=== PATIENT | female | born 1985 | race Caucasian/White ===

== ENCOUNTER → 2021-08-14 09:05 | Outpatient (CLI) | payer OTHER, SELFPAY ==
--- NOTE | ~2021-08-14 | CT_ITS ---
EXAMINATION: CTA chest PE protocol DATE: 08/14/2021 09:43 INDICATION: Hemoptysis. Dyspnea. TECHNIQUE: Computed tomography angiography (CTA) of the chest was performed with 100 mL Omnipaque-350 intravenous contrast timed to evaluate the pulmonary arteries. Coronal maximum intensity projection 3D-reconstructions were created by the technologist. Automated exposure control and iterative reconst ruction technique were employed. The dose-length product was 385.38 mGy-cm. COMPARISON: None. FINDINGS: Calcified right lung nodules and calcified right hilar lymph nodes are consistent with old granulomatous disease. There is minimal dependent atelectasis bilaterally. No pleural effusion. The h eart size is normal. No pericardial effusion. There is no pulmonary embolus. There is mild thoracic s pondylosis. IMPRESSION: 1. No pulmonary embolus. Reviewed, dictated and finalized at location B. SURER IMPRESSION: 1. No pulmonary embolus.
== END ==
PROVIDERS: Visit Provider Physician Assistant Medical
DX: R06.00 Dyspnea, unspecified (principal); M47.814 Spondylosis without myelopathy or radiculopathy, thoracic region
CPT/HCPCS: 71275; Q9967

== ENCOUNTER 2022-04-09 00:41 | Day surgery (SDC) | payer OTHER, SELFPAY ==
[2022-04-08 08:57] VITALS: BMI 31.6
--- NOTE | 2022-04-08 08:58 | PC.NURSE ---
Report to the Outpatient Waiting Room, entrance under the green pavilion located off [facility], at time _1000_ on date _[id number]_. OR Time: _1200_. - You and your visitor will be asked to self-screen and do not enter if you have any COVID symptoms. - Only one visitor and NO children visitors are allowed at this time. - The patient visitor is requested to leave or wait in car when not with patient due to restrictions. - A mask is required within the hospital. Patients may have clear liquids (water, carbonated beverages, clear teas, apple juice) until 3 hours prior to surgery with a maximum of 20 ounces. - No food from midnight until time of surgery Take the following medications with a SIP of water the morning of surgery: ____None Medications to discontinue per physician None Date to take last dose Please no make-up, nail ukrainian, hairspray, perfume, deodorant, or body powder the day of surgery. No jewelry (including any body piercings) or valuables the day of surgery, leave them at home. Please take a shower or bath the night before, or the morning of, surgery with an antibacterial soap. Wear comfortable, loose fitting clothing. - Jewelry must be removed prior to entering the operating room. Rings and piercings that are not removed may be cut off. - The hospital will not accept responsibility for valuables. - Please leave all valuables, including medications, at home the day of surgery. If you are going home after surgery, a licensed sweeper driver must drive you home. - NO public transportation without another adult. - We recommend that an adult stay with you for 24 hours following discharge. - We also recommend that you do not drive, make important decision, drink alcoholic beverages, or take any drugs that were not prescribed by your health care provider for at least 24 hours after your discharge time. Follow any additional instructions given to you from your surgeon. If you or anyone in your household have experienced Covid symptoms in the past week, please notify your surgeon or the nurse liaison at the phone number below for possible testing. Telephone instructions given to _Patient__and asked if any additional questions and then verbalized understanding. Patient advised to call surgeon office or pre surgery nurse liaison [phone] if any additional questions.
[2022-04-09] VITALS (9 sets, daily range): BP systolic 85–126; BP diastolic 44–83; PULSE 51–97; RESP 10–16; TEMP 36.3–37.6; O2SAT 100
[2022-04-09] MEDS: ACETAMINOPHEN 500 MG TABLET 1000 MG PO (10:34)
[2022-04-09] MEDS: KETOROLAC 15 MG/ML VIAL (*BKC) IV PUSH (10:36)
[2022-04-09] MEDS: LACTATED RINGERS 1,000 ML 30 ML IV CONT (10:59)
--- NOTE | 2022-04-09 11:08 | P.PNAN_ITS ---
Anes - Initial Pre Proc Eval Procedure: Operation Date: 04/09/22 12:00 Proposed Procedures p Rectal Examination Under Anesthesia, Hemorrhoidectomy - Arianne Pearson MD Date/Time: 04/09/22 11:08 Surgeon: Arianne Pearson MD Pre Op Diagnosis: Thrombosed External Hemorrhoid Patient Data Age: 37 Gender: F Height: 1.6 m Weight: 80.9 kg Allergies Allergy/AdvReac Type Severity Reaction Status Date / Time erenumab-aooe Allergy Mild Rash Verified 04/08/22 09:07 [From Aimovig Autoinjector] hydrocodone Allergy Mild Rash Verified 04/08/22 09:07 sumatriptan [From Imitrex] AdvReac Mild Confusion Verified 04/08/22 08:49 Home Medications Medication Instructions Recorded Confirmed Type acetaminophen 500 mg tablet 500 mg PO Q6H PRN Pain 04/01/22 04/08/22 History (Tylenol Extra Strength) docusate sodium 100 mg capsule 100 mg PO DAILY 04/01/22 04/08/22 History (Dulcolax Stool Softener (docusate)) ibuprofen 200 mg tablet 200 mg PO Q6H PRN Pain 04/01/22 04/08/22 History ubrogepant 50 mg tablet (Ubrelvy) 50 mg PO ONCE PRN headache 04/02/22 04/08/22 History hydrocortisone 2.5 % topical cream 1 applic RECTAL QHS PRN 04/07/22 04/08/22 Rx with perineal applicator hemorrhoids #30 grams (Anusol-HC) Patient hx anesthesia problems: none Family hx anesthesia problems: none Results Review: All pre-operative results and documents have been reviewed as part of the pre- operative evaluation. 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 Informed Consent: The patient's anesthetic plan and its attendant risks and benefits were discussed with the patient/family/POA. Questions were solicited and answers provided to the satisfaction of the patient/family/POA.
--- NOTE | 2022-04-09 11:45 | WPDHPUPDATE1 ---
History and Physical Update Update Date/Time: 04/09/22 11:45 History and Physical has been reviewed, including an updated exam of the patient. There are NO changes in the patient's condition. Risks, benefits, and alternatives have been discussed and questions answered. Patient agrees to proceed with procedure.
[2022-04-09] MEDS: ceFAZolin 2 GM/D5W 50 ML 2 GM/50 ML BAG IVPB (12:04)
[2022-04-09] MEDS: LIDOCAINE HCL 2% GEL UROJET 10 ML PKG MUCOUS MEM (12:16)
[2022-04-09] MEDS: LIDOCAINE HCL 1% PF 30 ML VIAL 10 ML INFILTRATE (12:17)
--- NOTE | 2022-04-09 12:42 | P.OP_ITS ---
Procedure Note - Detailed Date of Procedure 04/09/22 Pre-op Diagnosis Thrombosed External Hemorrhoids Post-op Diagnosis Same Procedure Performed exam under anesthesia, external hemorrhoidectomy involving left lateral and right posterior positions Surgeon Arianne Pearson MD Anesthesia General Indications 37 y/o F c multiple external hemorrhoids c frequent flares causing pain, drainage refractory to conservative measures. Findings multiple external hemorrhoids predominately in L lateral and R posterior Description of Procedure The patient was taken to the operating room and placed in the modified lithotomy position. After adequate induction of general anesthesia, the patient was prepped and draped in the normal sterile fashion. A time-out was then done to verify the patient's identity, as well as the procedure being performed. I began by doing a digital exam. There was noted to be multiple external hemorrhoids, however no internal hemorrhoids were noted. At this point, a bilateral pudendal block was done. Then used the [place] retractor to further evaluate the anal canal as well as rectum, other than external hemorrhoids no other pathology was noted. I then began excising the external hemorrhoids using the hand-held LigaSure device. The hemorrhoids were noted to be in the left lateral and right posterior positions. Multiple hemorrhoids were excised using the LigaSure. The specimens will be sent to pathology for further review. Hemostasis was noted at all excision sites. I then placed a piece of Gelfoam covered with lidocaine jelly into the rectal vault. The patient tolerated the procedure and was extubated in the operating room postop. She will be transferred to the recovery room in stable condition. Implants Gelfoam covered with lidocaine jelly in the rectal vault Estimated Blood Loss 10 Drains No Packing Yes Pathology Yes Complications No immediate complications Condition Stable Disposition PACU [facility] Billing Surgery - Charge Forward: Surgery Billing
== END 2022-04-09 14:25 | disposition home or self-care (01) ==
PROVIDERS: PCP Family Medicine; Visit Provider Surgery
PROC: (CPT 46320; principal; 2022-04-09 12:00)
DX: K64.5 Perianal venous thrombosis (principal)
CPT/HCPCS: 46320 ×2; 88304; A9270; J0690; J1100; J1885; J2250; J2405; J2704; J3010; J7120

== ENCOUNTER → 2022-07-07 07:19 | Outpatient (CLI) | payer OTHER, SELFPAY ==
--- NOTE | ~2022-07-07 | MR_ITS ---
EXAMINATION: MR brain/brain stem wo con DATE: 07/07/2022 07:53 INDICATION: Migraines. Dysphagia. TECHNIQUE: Magnetic resonance imaging (MRI) of the brain and brainstem was performed without intraven ous contrast. Sequences included sagittal and axial T1-weighted SE, axial diffusion-weighted FS SE, a xial T2*-weighted GRE, axial 3D SWAN, axial T2-weighted FLAIR, and axial T2-weighted FSE. Apparent di ffusion coefficient (ADC) maps were created. COMPARISON: None. FINDINGS: There are no areas of restricted diffusion to suggest acute infarction. No intracranial hemorrhage or abnormal intracranial mass lesion. There are no intraparenchymal signal abnormalities seen on the ot her pulse sequences. The ventricles are symmetric and normal in size. There are no abnormal extra-axi al fluid collections. Flow voids are seen in the cerebral arteries on the T2-weighted sequences consi stent with their expected patency. Small right mastoid effusion. Visualized orbits and soft tissues a re unremarkable. IMPRESSION: 1. Normal brain. No acute intracranial process. Reviewed, dictated and finalized at location A. CAL RECORD CODER
== END ==
PROVIDERS: PCP Family Medicine; Visit Provider Family Medicine
DX: R47.02 Dysphasia (principal); G43.909 Migraine, unspecified, not intractable, without status migrainosus
CPT/HCPCS: 70551

== ENCOUNTER 2023-12-27 18:02 | Inpatient (IN) | payer OTHER, SELFPAY ==
[2023-12-27] VITALS (20 sets, daily range): BP systolic 105–146; BP diastolic 55–85; PULSE 68–87; TEMP 36.6; BMI 39.2
[2023-12-27 19:04] LABS: Basophils Percent Auto 0.2 % (0.2-1.2); Eosinophils Absolute Auto 0.1 K/mm3 (0-0.3); Eosinophils Percent Auto 0.8 % (0-4.4); Hematocrit 34.6 % (37.0-47.0); Hemoglobin 11.3 g/dL (12.0-15.0); Immature Granulocyte Absolute 0.07 K/mm3 (0.00-0.031); Immature Granulocyte Percent A 0.5 % (0-0.5); Lymphocytes Percent Auto 14.5 % (18.3-44.2); Mean Corpuscular HGB Conc 32.7 g/dl (32-36); Mean Corpuscular Hemoglobin 27.4 pg (26-34); Mean Corpuscular Volume 83.8 fl (80-100); Mean Platelet Volume 11.8 fl (7.4-10.4); Monocytes Absolute Auto 0.8 K/mm3 (0.1-0.6); Monocytes Percent Auto 5.9 % (2.6-8.5); Neutrophils Absolute Auto 10.3 K/mm3 (1.3-6.7); Neutrophils Percent Auto 78.1 % (45.5-73.1); Platelet Count Result 197 k/mm3 (150-375); Red Blood Count 4.13 M/mm3 (4.2-5.4); Red Cell Distribution Width 13.3 % (11.5-14.5); White Blood Count 13.1 K/mm3 (4.5-10.0)
[2023-12-27 19:16] LABS: Alanine Aminotransferase 20 U/L (6-35); Albumin Level 3.6 g/dL (3.5-5.1); Alkaline Phosphatase 161 U/L (38-126); Anion Gap 5 mmol/L (4-12); Aspartate Amino Transferase 29 U/L (14-36); Bilirubin,Total 0.5 mg/dL (0.2-1.3); Blood Urea Nitrogen 14 mg/dL (7-17); Calcium 9.6 mg/dL (8.4-10.2); Carbon Dioxide 20 mmol/L (22-30); Chloride 109 mmol/L (98-107); Estimated Glomerular Filt Rate > 60; Glucose 108 mg/dL (65-110); Sodium 134 mmol/L (137-145); Uric Acid 5.6 mg/dL (2.5-7.5)
--- NOTE | 2023-12-27 19:25 | LDADM ---
This patient, Diane Aguirre, was admitted to Labor/Delivery/Recovery 102 on 12/27/23 at 18:02. Plans for labor, pain management and were discussed with patient. Patient/family oriented to hospital policies and general routines including ID bracelet, bed and alarms, visiting hours, pain management, procedures, bathroom and other care routines, personal items, smoking policy, room service/diet and guest tray routines, infant security routines, and visiting hours. Patient/Family are encouraged to report perceived risks to care and to ask questions if they do not understand what they are told or what they should do. See OBIX for further documentation.
[2023-12-27 19:56] LABS: HIV 1/2 Ab P24 Ag Result Negative (Negative)
[2023-12-27] MEDS: DINOPROSTONE 10 MG VAG INSERT VAGINAL (20:22)
[2023-12-28] VITALS (146 sets, daily range): BP systolic 86–145; BP diastolic 45–116; PULSE 62–138; RESP 16–24; TEMP 36.3–37.2; O2SAT 96–100
--- NOTE | 2023-12-28 05:27 | WPDANESEPP ---
Anes - Eval Pre Procedure Procedure: Labor epidural Date/Time: 12/28/23 05:27 Surgeon: Miky Thomas Preop Diagnosis: Abdominal pain with contractions Pre Op Diagnosis: Induction of Labor Patient Data Age: 38 Gender: F Height: 1.6 m Weight: 100.5 kg Last Vital Signs Temp 97.8 F 12/28/23 05:00 Pulse 70 12/28/23 05:15 BP 112/52 L 12/28/23 05:15 O2 Del Method Room Air 12/27/23 19:25 Allergies Allergy/AdvReac Type Severity Reaction Status Date / Time erenumab-aooe Allergy Mild Rash Verified 12/04/23 12:23 [From Aimovig Autoinjector] hydrocodone Allergy Mild Rash Verified 12/04/23 12:23 sumatriptan [From Imitrex] AdvReac Mild Confusion Verified 12/04/23 12:23 Home Medications Medication Instructions Recorded Confirmed Type acetaminophen 500 mg tablet 500 mg PO Q6H PRN Pain 04/01/22 12/04/23 History (Tylenol Extra Strength) labetalol 100 mg tablet 100 mg PO DAILY 12/04/23 12/04/23 History Laboratory Tests 12/27/23 18:43 WBC 13.1 H K/mm3 (4.5-10.0) RBC 4.13 L M/mm3 (4.2-5.4) Hgb 11.3 L g/dL (12.0-15.0) Hct 34.6 L % (37.0-47.0) MCV 83.8 fl (80-100) MCH 27.4 pg (26-34) MCHC 32.7 g/dl (32-36) RDW 13.3 % (11.5-14.5) Plt Count 197 k/mm3 (150-375) MPV 11.8 H fl (7.4-10.4) Immature Gran % (Auto) 0.5 % (0-0.5) Neut % (Auto) 78.1 H % (45.5-73.1) Lymph % (Auto) 14.5 L % (18.3-44.2) [place] % (Auto) 5.9 % (2.6-8.5) Eos % (Auto) 0.8 % (0-4.4) Baso % (Auto) 0.2 % (0.2-1.2) Lymph # (Auto) 1.90 K/mm3 (0.9-3.2) [place] # (Auto) 0.8 H K/mm3 (0.1-0.6) Eos # (Auto) 0.1 K/mm3 (0-0.3) Baso # (Auto) 0.0 K/mm3 (0.0-0.1) Abs Immat Gran (auto) 0.07 H K/mm3 (0.00-0.031) Absolute Neuts (auto) 10.3 H K/mm3 (1.3-6.7) Absolute Nucleated RBC 0.000 K/mm3 (0.0-0.012) Nucleated RBC % 0.0 % (0.0-0.2) Sodium 134 L mmol/L (137-145) Potassium 4.0 mmol/L (3.4-5.0) Chloride 109 H mmol/L (98-107) Carbon Dioxide 20 L mmol/L (22-30) Anion Gap 5 mmol/L (4-12) BUN 14 mg/dL (7-17) Creatinine 1.00 mg/dL (0.7-1.0) Estim Creat Clear Calc Not Reportable Estimated GFR > 60 (59 - ) Glucose 108 mg/dL (65-110) Uric Acid 5.6 mg/dL (2.5-7.5) Calcium 9.6 mg/dL (8.4-10.2) Total Bilirubin 0.5 mg/dL (0.2-1.3) AST 29 U/L (14-36) ALT 20 U/L (6-35) Alkaline Phosphatase 161 H U/L (38-126) Total Protein 7.0 g/dL (6.3-8.2) Albumin 3.6 g/dL (3.5-5.1) RPR Pending HIV 1&2 Ab/P24 Ag 4thGn Negative (Negative) Blood Type AB Positive Antibody Screen Negative : gestational age HCG: positive Patient hx anesthesia problems: none Family hx anesthesia problems: none Results Review: All pre-operative results and documents have been reviewed as part of the pre-operative evaluation. [facility] Past Medical History Medical History Migraines Obesity and not yet delivered Thrombosed external hemorrhoid Surgical History Surgical History History of hysteroscopy S/P hemorrhoidectomy Exam under anesthesia; external hemorrhoidectomy involving left lateral & right posterior positions 04/09/22 S/P tonsillectomy Family History Family History Father Hypertension Grandparent Alzheimer disease Mother Aortic aneurysm Social History Social History Smoking status: Former smoker Tobacco type: cigarettes Second hand tobacco smoke exposure: No Smoking end date: 12/01/03 Alcohol intake: current Drinks per week: 5 Substance use: never Substance use type: does not use Do You Feel Safe in your Home?: Yes Lack of Transportation:
[2023-12-28] MEDS: AMPICILLIN 2 GM/NS 100 ML 2 GM/100 ML BAG IVPB (06:30)
--- NOTE | 2023-12-28 06:35 | PM.IMHP ---
H&P: HPI History of Present Illness Date/Time: 12/28/23 06:35 Chief Complaint: Hypertension at term Narrative: history 38-year-old 2 para 1 last menstrual period was 03/27/2023, EDC is 01/01/2024, confirmed by 6 week ultrasound presents at 39 weeks gestation for induction of labor secondary to elevated blood pressure. She is on labetalol b.i.d.. She is positive for group B strep on her urine. [facility] Past Medical History Medical History Migraines Obesity and not yet delivered Thrombosed external hemorrhoid Surgical History Surgical History History of hysteroscopy S/P hemorrhoidectomy Exam under anesthesia; external hemorrhoidectomy involving left lateral & right posterior positions 04/09/22 S/P tonsillectomy Family History Family History Father Hypertension Grandparent Alzheimer disease Mother Aortic aneurysm Social History Social History Smoking status: Former smoker Tobacco type: cigarettes Second hand tobacco smoke exposure: No Smoking end date: 12/01/03 Alcohol intake: current Drinks per week: 5 Substance use: never Substance use type: does not use Do You Feel Safe in your Home?: Yes Lack of Transportation: No Lack of Food: Never True Current Housing: I Have Housing Concerned About Future Housing: No Difficulty Paying Gas/Electric Bills: No Difficulty Paying for Meds: No Currently Unemployed: No Education: Bachelor's Degree Difficulty w/ Childcare or Family Care: No Living arrangements: with family Occupation/Education: occupation 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[employer] Gender identity (if verbalized by the patient): Female Spiritual care concerns: No Agree to blood products: Yes Meds Home Medications and Allergies Home Medications Medication Instructions Recorded Confirmed Type acetaminophen 500 mg tablet 500 mg PO Q6H PRN Pain 04/01/22 12/04/23 History (Tylenol Extra Strength) labetalol 100 mg tablet 100 mg PO DAILY 12/04/23 12/04/23 History Allergies Allergy/AdvReac Type Severity Reaction Status Date / Time erenumab-aooe Allergy Mild Rash Verified 12/04/23 12:23 [From Aimovig Autoinjector] hydrocodone Allergy Mild Rash Verified 12/04/23 12:23 sumatriptan [From Imitrex] AdvReac Mild Confusion Verified 12/04/23 12:23 Vital Signs Vital Signs - 24 hr 12/27/23 19:00 12/27/23 19:15 12/27/23 19:30 Temperature Pulse Rate 78 80 77 Blood Pressure 143/73 H 140/73 135/67 Oxygen Delivery 12/27/23 19:45 12/27/23 20:00 12/27/23 20:15 Temperature Pulse Rate 82 80 82 Blood Pressure 141/74 H 120/55 L 146/83 H Oxygen Delivery 12/27/23 20:30 12/27/23 20:45 12/27/23 20:59 Temperature Pulse Rate 84 82 80 Blood Pressure 111/85 105/62 126/76 Oxygen Delivery 12/27/23 21:15 12/27/23 21:30 12/27/23 21:45 Temperature Pulse Rate 73 68 73 Blood Pressure 135/73 133/70 142/73 H Oxygen Delivery 12/27/23 22:00 12/27/23 22:15 12/27/23 22:30 Temperature Pulse Rate 72 72 75 Blood Pressure 130/73 134/71 138/66 Oxygen Delivery 12/27/23 22:45 12/27/23 23:00 12/27/23 23:15 Temperature Pulse Rate 75 70 73 Blood Pressure 124/76 125/73 125/76 Oxygen Delivery 12/27/23 23:30 12/27/23 23:45 12/28/23 00:00 Temperature 98 F Pulse Rate 87 78 76 Blood Pressure 137/77 113/68 108/70 Oxygen Delivery 12/28/23 00:15 12/28/23 00:30 12/28/23 00:45 Temperature Pulse Rate 75 77 73 Blood Pressure 115/68 119/71 131/72 Oxygen Delivery 12/28/23 01:00 12/28/23 01:15 12/28/23 01:30 Temperature Pulse Rate 73 76 73 Blood Pressure 118/75 119/76 113/63 Oxygen Delivery 12/28/23 01:45 12/28/23
[2023-12-28] MEDS: LACTATED RINGERS 1,000 ML 125 ML IV CONT ×4 (06:39→20:20)
[2023-12-28] MEDS: OXYTOCIN 30 UNITS/NS 500 ML 30 UNITS/500 ML BAG IV CONT (06:40)
[2023-12-28] MEDS: AMPICILLIN 1 GM/NS 50 ML 1 GM/50 ML BAG IVPB ×2 (10:22→14:54)
[2023-12-28 11:26] LABS: Rapid Plasma Reagin Non-Reactive (NonReactive)
--- NOTE | 2023-12-28 12:29 | PM.OBPNLAB ---
Pain Control Date/time seen: 12/28/23 12:29 Pain control: tolerating well Pelvic Exam Dilation (cm): 1 Effacement (%): 50 station: -3 Amniotic membrane status: Ruptured (??) Comments: iupc placed. no fluid yet
--- NOTE | 2023-12-28 16:15 | PM.OBPNLAB ---
Pain Control Date/time seen: 12/28/23 16:15 Pain control: tolerating well and epidural Comments: breech noted. offewred section. risks/benefits given Pelvic Exam Dilation (cm): 1 Effacement (%): 50 station: -3 Amniotic membrane status: Ruptured (??)
[2023-12-28] MEDS: ONDANSETRON INJ 4 MG/2 ML VIAL IV PUSH (16:42)
[2023-12-28] MEDS: FAMOTIDINE 20 MG/2 ML VIAL IV PUSH (16:42)
[2023-12-28] MEDS: AZITHROMYCIN 500 MG/NS 250 ML 500 MG/250 ML BAG 250 MG IVPB (16:42)
--- NOTE | 2023-12-28 17:46 | WPDHPUPDATE1 ---
History and Physical Update Update Date/Time: 12/28/23 17:46 History and Physical has been reviewed, including an updated exam of the patient. There are NO changes in the patient's condition. Risks, benefits, and alternatives have been discussed and questions answered. Patient agrees to proceed with procedure.
--- NOTE | 2023-12-28 17:47 | W.PM.OBCSD ---
OB - Delivery Note Procedure Delivery date: 12/28/23 Pre-op diagnosis: Other (Breech) Post-op Diagnosis: Same Induction method: AROM Delivery augmentation: Pitocin Delivery monitor: External FHT Prior to decision for section, ACOG/SMFM labor guidelines were considered and discussed with the patient and staff. Decision made to proceed with the section.: Yes Procedure Performed: Primary Surgeon: Taiwo Thomas MD Anesthesia type: Epidural Description of Procedure/Findings: patient was admitted for induction of labor was noted to be breech presentation after obtaining informed consent she was taken back prepped draped in normal sterile fashion placed in the supine position. The epidural anesthesia the abdomen was entered in Pfannenstiel fashion wrist there is fashion. Fashion size midline cure number all fashion bilaterally. Underlying muscles sharply dissected. Parietal peritoneum below by Park clamps and by sharp dissection carried superiorly and inferiorly to bladder. Bladder blade placed bladder flap formed. Bladder blade returned. A low-transverse incision made the occiput delivered to the maternal left arms were delivered followed by a head delivered in the flexed position. Cord clamped and cut infant passed off the table given Apgars of 7 [id number] 5 9 [id number]. Placenta did undocked manually. Uterus delivered on the abdomen wrapped in moist towel. After assuring no membranes or debris remained in the uterus, the uterus was closed continuous running locking 0 Vicryl from lateral edge to lateral edge. This followed by 2nd imbricating running Vicryl from lateral edge to lateral edge. Hemostasis was assured. The ovaries and tubes appeared within normal limits in the uterus returned the abdomen. Hemostasis was assured the laps removed and accounted for. The fascia closed with continuous running 0 Vicryl from lateral edge to lateral edge. Irrigation subcutaneously and the skin closed with 4 Monocryl and glue. Patient was sent to recovery in satisfactory condition. All sponge, needle, instrument counts were correct. There were no immediate complications. QBL was 415cc Estimated Blood Loss: 415 Drains: No Packing: No Pathology: None sent Complications: No immediate complications Condition: Stable Disposition: Floor Baby Date of : 12/28/23 Time of : 17:30 Weeks of gestation at delivery: 39 Infant gender: Male Weight (pounds): 8 Weight (ounces): 5 presentation: breech position: Right Sacrum Anterior Placenta delivery description: Manual Removal Cord Vessel Description: 3 Vessels score one minute: 7 score five minutes: 9
--- NOTE | 2023-12-28 17:50 | PM.DS ---
DS: Admitting Diagnosis Discharge Date 12/30/2023 Admitting Diagnosis term /gestational hypertension DS: Discharge Diagnosis Discharge Diagnosis (1) Term : Code(s): Z34.90 - Encounter for supervision of normal , unspecified, unspecified trimester Status: Acute (2) Gestational hypertension: Code(s): O13.9 - Gestational [-induced] hypertension without significant proteinuria, unspecified trimester Status: Acute (3) Breech presentation: Code(s): O32.1XX0 - Maternal care for breech presentation, not applicable or unspecified Status: Acute DS: Summary Hospital Course Reason for hospitalization: patient was admitted for induction of labor. She underwent low-transverse section on 12/28/2023 for breech presentation. Hospital Course: Patient's hospital course was. She afebrile. She was up voiding without, eating regular diet, ambulating, and generally without complaints. Routine discharge instructions were given Time Spent with Patient Time attestation: Total time spent providing and/or coordinating discharge services: DS: Data Data Completed and Pending Labs on day of discharge: Labs from last 24 hours 12/27/23 18:43 WBC 13.1 H RBC 4.13 L Hgb 11.3 L Hct 34.6 L MCV 83.8 MCH 27.4 MCHC 32.7 RDW 13.3 Plt Count 197 MPV 11.8 H Immature Gran % (Auto) 0.5 Neut % (Auto) 78.1 H Lymph % (Auto) 14.5 L [place] % (Auto) 5.9 Eos % (Auto) 0.8 Baso % (Auto) 0.2 Lymph # (Auto) 1.90 [place] # (Auto) 0.8 H Eos # (Auto) 0.1 Baso # (Auto) 0.0 Abs Immat Gran (auto) 0.07 H Absolute Neuts (auto) 10.3 H Absolute Nucleated RBC 0.000 Nucleated RBC % 0.0 Sodium 134 L Potassium 4.0 Chloride 109 H Carbon Dioxide 20 L Anion Gap 5 BUN 14 Creatinine 1.00 Estim Creat Clear Calc Not Reportable Estimated GFR > 60 Glucose 108 Uric Acid 5.6 Calcium 9.6 Total Bilirubin 0.5 AST 29 ALT 20 Alkaline Phosphatase 161 H Total Protein 7.0 Albumin 3.6 RPR Non-reactive HIV 1&2 Ab/P24 Ag 4thGn Negative Blood Type AB Positive Antibody Screen Negative Discharge Plan Discharge Attending physician on discharge: Taiwo Martin Discharging Clinician: Taiwo Martin Patient Disposition: Home, Self-Care Activity: may shower, no straining and pelvic rest Diet: heart healthy Wound Care Instructions: follow printed instructions Patient Instructions: Antibiotic Form Stand Alone Forms: General Discharge Information Follow-up/Referrals: Taiwo Martin MD [Physician] - Discharge Medications: New oxycodone-acetaminophen [Percocet] 5-325 mg tablet 1 tablet PO Q4H PRN (Reason: pain) Qty: 30 0RF Continued acetaminophen [Tylenol Extra Strength] 500 mg tablet 500 mg PO Q6H PRN (Reason: Pain) labetalol 100 mg tablet 100 mg PO DAILY Date of admission: 12/27/23 18:02 Primary Care Provider: UNKNOWN,DOCTOR Admitting Provider: Taiwo Martin Attending physician on admission: Taiwo Martin Condition: Stable
[2023-12-28] MEDS: ceFAZolin 2 GM/D5W 50 ML 2 GM/50 ML BAG IVPB (18:10)
--- NOTE | 2023-12-28 20:12 | OBPPTRN ---
Patient transferred to post room #290 via stretcher. Support person present. Oriented to unit, room, information board, rooming in, admission packet and security measures. Patient verbalizes understanding.
[2023-12-28] MEDS: LIDOCAINE 5% PATCH 1 PATCH (20:20)
[2023-12-28] MEDS: KETOROLAC 15 MG/ML VIAL (*BKC) IV PUSH (20:20)
[2023-12-28] MEDS: KETOROLAC 15 MG/ML VIAL (*BKC) (21:48)
[2023-12-29] MEDS: KETOROLAC 15 MG/ML VIAL (*BKC) IV PUSH (03:20)
[2023-12-29] MEDS: ACETAMINOPHEN 325 MG TABLET 650 MG PO ×4 (03:20→22:00)
[2023-12-29] MEDS: DEXTROSE 5%/0.45% SOD CHL 1,000 ML 125 ML IV CONT (03:33)
[2023-12-29 05:07] LABS: Basophils Percent Auto 0.2 % (0.2-1.2); Eosinophils Absolute Auto 0.1 K/mm3 (0-0.3); Eosinophils Percent Auto 0.4 % (0-4.4); Hematocrit 31.3 % (37.0-47.0); Immature Granulocyte Absolute 0.05 K/mm3 (0.00-0.031); Immature Granulocyte Percent A 0.4 % (0-0.5); Lymphocytes Absolute Auto 1.68 K/mm3 (0.9-3.2); Lymphocytes Percent Auto 12.5 % (18.3-44.2); Mean Corpuscular HGB Conc 31.9 g/dl (32-36); Mean Corpuscular Hemoglobin 27.3 pg (26-34); Mean Corpuscular Volume 85.5 fl (80-100); Mean Platelet Volume 12.1 fl (7.4-10.4); Monocytes Absolute Auto 0.7 K/mm3 (0.1-0.6); Monocytes Percent Auto 5.2 % (2.6-8.5); Neutrophils Absolute Auto 10.9 K/mm3 (1.3-6.7); Neutrophils Percent Auto 81.3 % (45.5-73.1); Platelet Count Result 161 k/mm3 (150-375); Red Blood Count 3.66 M/mm3 (4.2-5.4); Red Cell Distribution Width 13.6 % (11.5-14.5); White Blood Count 13.4 K/mm3 (4.5-10.0)
--- NOTE | 2023-12-29 06:55 | PM.OBPNVD ---
OB - PN: Subj Subjective Date/time seen: 12/29/23 06:55 Patient comments: no complaints and pain well controlled baby status: doing well and nursing well OB - PN: Obj Data Labs 12/29/23 03:07 12/27/23 18:43 Labs: Laboratory Results - last 24 hr 12/27/23 12/29/23 18:43 03:07 WBC 13.4 H RBC 3.66 L Hgb 10.0 L Hct 31.3 L MCV 85.5 MCH 27.3 MCHC 31.9 L RDW 13.6 Plt Count 161 MPV 12.1 H Immature Gran % (Auto) 0.4 Neut % (Auto) 81.3 H Lymph % (Auto) 12.5 L [place] % (Auto) 5.2 Eos % (Auto) 0.4 Baso % (Auto) 0.2 Lymph # (Auto) 1.68 [place] # (Auto) 0.7 H Eos # (Auto) 0.1 Baso # (Auto) 0.0 Abs Immat Gran (auto) 0.05 H Absolute Neuts (auto) 10.9 H Absolute Nucleated RBC 0.000 Nucleated RBC % 0.0 RPR Non-reactive OB - PN A/P Plan day: 1 Plan: routine care Time Spent With Patient Time: Total time spent is greater than 50% in coordination of care (as documented) at patient's floor/unit and/or counseling patient: Time with patient: less than 15 minutes Exam Const: General: cooperative, healthy appearing and comfortable Nutritional Appearance: average body habitus Orientation/consciousness: oriented to person, oriented to place and oriented to time Resp: Effort & Inspection: normal respiratory effort Cardio: Rate: regular rate Rhythm: regular rhythm Heart sounds: S1 normal heart sound present and S2 normal heart sound present GI: Inspection: normal to inspection and incision (wound cdi)
[2023-12-29 08:10] VITALS: BP 116/64; PULSE 74; RESP 16; TEMP 36.6; O2SAT 98
[2023-12-29] MEDS: IBUPROFEN 600 MG TABLET PO ×2 (10:15→22:00)
[2023-12-29] MEDS: MULTIVIT/MIN/PREN/FOL AC/IRON TABLET 1 TAB PO (10:16)
[2023-12-29] MEDS: DOCUSATE SODIUM 100 MG CAPSULE PO ×2 (10:16→16:05)
[2023-12-29] MEDS: SIMETHICONE 80 MG TAB.CHEW PO ×3 (10:16→16:05)
[2023-12-29 12:43] VITALS: BP 125/65; PULSE 79; RESP 16; TEMP 36.6; O2SAT 100
--- NOTE | 2023-12-29 15:11 | WPDANLDPN2 ---
Anes-Prog Note L&D Date/Time: 12/29/23 15:11 Comfortable throughout: section Neuraxial method: epidural Epidural/Spinal procedure site: clean & non-tender Neuro status: Neuro function grossly intact. Cardiovascular status: normal Respiratory status: normal Airway patency: baseline Mental status: baseline Post-Op hydration status: normal Vital Signs: Last Vital Signs Temp 36.6 C 12/29/23 12:43 Pulse 79 12/29/23 12:43 Resp 16 12/29/23 12:43 BP 125/65 12/29/23 12:43 Pulse Ox 100 12/29/23 12:43 O2 Del Method Room Air 12/28/23 19:55 Pain score (VAS): 3/10 I/O: Intake & Output 12/28/23 12/29/23 12/29/23 23:59 07:59 15:59 Intake Total 1059.3 500 Output Total 515 600 625 Balance 544.3 -600 -125 Post-procedural complaints: none Patient feedback: Patient satisfied with anesthetic care.
--- NOTE | 2023-12-29 15:12 | WPDANLDNPN2 ---
Anes-Prog Note L&D-Neuraxial Date/Time: 12/29/23 15:12 Neuraxial medications: epidural PF morphine Opiod-related complaints: none Patient feedback: Patient satisfied with post-operative pain management.
--- NOTE | 2023-12-29 15:25 | PC.NURSE ---
[id number] Introductions were made, then consulted with patient to assess needs related to . Mother shared that she has been able to latch infant to the breast without pain, however; has not wanted to breastfeed since the circumcision. Orienting RN is present changing a diaper, the room has 5 visitors and BAND NAILER walks in while RN SAVANAH is present. Resources provided for inpatient services with the name written on the communication board. Mother voiced understanding of information and will call if there is a request for assistance.
[2023-12-29 22:00] VITALS: BP 151/82; PULSE 87; RESP 18; TEMP 36.8; O2SAT 99
[2023-12-29] MEDS: LIDOCAINE 5% PATCH 1 PATCH TRANSDERM (22:19)
--- NOTE | 2023-12-30 04:15 | PC.NURSE ---
0415- This RN entered the room to assist with help. Mother stated that she was able to latch baby for feeding. Patient stated that she had stood up to use the restroom and felt as though she had a gush of blood coming. Patient stated she stood in the restroom for a short time and felt the gush come out. Patient stated that when she sat on the toilet and looked for blood she found the gush was not blood but was clear watery fluid into her pad and underwear. She stated that she threw the pad into the trash. This RN consulted Lucy RN and notified patient to speak with OBGYN in the morning.
[2023-12-30] MEDS: IBUPROFEN 600 MG TABLET PO ×2 (05:00→10:45)
[2023-12-30] MEDS: ACETAMINOPHEN 325 MG TABLET 650 MG PO ×2 (05:00→10:45)
--- NOTE | 2023-12-30 06:52 | PM.OBPNVD ---
OB - PN: Subj Subjective Date/time seen: 12/30/23 06:52 Patient comments: no complaints and pain well controlled baby status: doing well and nursing well OB - PN: Obj Data Labs 12/29/23 03:07 12/27/23 18:43 OB - PN A/P Plan day: 2 Plan: routine care, discharge home and follow up 6 weeks (4) Time Spent With Patient Time: Total time spent is greater than 50% in coordination of care (as documented) at patient's floor/unit and/or counseling patient: Time with patient: less than 15 minutes Exam Const: General: cooperative, healthy appearing and comfortable Nutritional Appearance: average body habitus Orientation/consciousness: oriented to person, oriented to place and oriented to time Resp: Effort & Inspection: normal respiratory effort Cardio: Rate: regular rate Rhythm: regular rhythm Heart sounds: S1 normal heart sound present and S2 normal heart sound present GI: Inspection: normal to inspection and incision (cdi)
[2023-12-30 07:35] VITALS: BP 128/65; PULSE 77; RESP 18; TEMP 37; O2SAT 99
[2023-12-30 08:00] VITALS: PULSE 77; RESP 18; O2SAT 99
[2023-12-30] MEDS: SIMETHICONE 80 MG TAB.CHEW PO (09:10)
[2023-12-30] MEDS: MULTIVIT/MIN/PREN/FOL AC/IRON TABLET 1 TAB PO (09:10)
[2023-12-30] MEDS: DOCUSATE SODIUM 100 MG CAPSULE PO (09:10)
--- NOTE | 2023-12-30 11:45 | PC.NURSE ---
Patient viewed the discharge video Mother & Baby Care, The First Two Weeks . Patient was given the opportunity and encouraged to ask questions. Patient verbalized understanding of information shared and has been given the mother/baby guide for home reference.
--- NOTE | 2023-12-30 12:48 | PC.NURSE ---
[id number] Consulted with mother concerning needs and she shared her ability to independently latch infant optimally without pain. Mother is feeding appropriately for growth of infant and understands stimulating to eat if needed. Reviewed the risk, benefits and how to properly flange fit for pumping since mother is also supplementing with a little of formula. Reviewed how to protect her milk supply with minimal of 8 times of removal of milk in a 24 hour period with 1-2 times at night. Reminded mother there's to be no pain or redness with or pumping, if so, then call her doctor or use the services or community IBCLC. has had appropriate feedings in the last 24 hours meets the outcomes for weight, output, blood sugar and jaundice at this time. Reinforced understanding of milk production, transition of milk, signs of adequate intake, transition of stool, prevention/relief/treatment of engorgement, plugged ducts, mastitis, responsive watching for feeding cues, the different methods of stimulating to breastfeed 1-3 hours after the start of the last feeding, community resources, and when to call a provider using the resource of the feeding sheet along with the mom and baby guide. Mother voiced understanding of the information shared, is confident to continue effectively her infant at home, when to call for assistance, denies any additional assistance or education at this time. Reported to the Primary RN.
[2023-12-31 10:23] VITALS: BP 125/74; PULSE 75; RESP 18; TEMP 36.9; O2SAT 99
== END 2023-12-30 12:32 | disposition home or self-care (01) | DRG 788 ==
LOC: ANHLDR 12-28 17:52 → ANHOB2 12-28 20:18
PROVIDERS: Admitting Provider Obstetrics & Gynecology; Visit Provider Obstetrics & Gynecology
PROC: 10D00Z1 Extraction of Products of Conception, Low, Open Approach (ICD-10-PCS; CPT 59514; principal; 2023-12-28 16:45)
DX: O32.1XX0 Maternal care for breech presentation, not applicable or unspecified (principal); O99.824 Streptococcus B carrier state complicating childbirth; O13.4 Gestational [pregnancy-induced] hypertension without significant proteinuria, complicating childbirth; O69.2XX0 Labor and delivery complicated by other cord entanglement, with compression, not applicable or unspecified; O77.0 Labor and delivery complicated by meconium in amniotic fluid; Z3A.39 39 weeks gestation of pregnancy; Z37.0 Single live birth; Z87.891 Personal history of nicotine dependence
CPT/HCPCS: 36415; 80053; 84550; 85025; 86592; 86703; 86850; 86900; 86901; A9270; G0432; J0290; J0456; J0690; J1885; J2274; J2371; J2405; J2590; J2795; J7120